=== PATIENT | female | born 1985 | race Caucasian/White ===

== ENCOUNTER → 2024-05-17 13:32 | Outpatient (REF) | payer OTHER, SELFPAY | LOC: PNTC 13:32 | PROVIDERS: ATTENDING PHYSICIAN Obstetrics & Gynecology | DX: Z34.90 Encounter for supervision of normal pregnancy, unspecified, unspecified trimester (principal); Z87.51 Personal history of pre-term labor | CPT/HCPCS: 76805; 76817 ==

== ENCOUNTER → 2024-06-13 13:28 | Outpatient (REF) | payer OTHER, SELFPAY | LOC: PNTC 13:28 | PROVIDERS: ATTENDING PHYSICIAN Obstetrics & Gynecology | DX: Z87.51 Personal history of pre-term labor (principal) | CPT/HCPCS: 76811; 76817 ==

== ENCOUNTER → 2024-07-12 16:46 | Outpatient (REF) | payer OTHER, SELFPAY | LOC: PNTC 16:46 | PROVIDERS: ATTENDING PHYSICIAN Obstetrics & Gynecology | DX: O09.519 Supervision of elderly primigravida, unspecified trimester (principal) | CPT/HCPCS: 76816; 76817 ==

== ENCOUNTER → 2024-07-14 14:17 | Outpatient (REF) | payer OTHER, SELFPAY | LOC: WDC 14:17 | PROVIDERS: ATTENDING PHYSICIAN Obstetrics & Gynecology | DX: N63.10 Unspecified lump in the right breast, unspecified quadrant (principal) | CPT/HCPCS: 76642 ==

== ENCOUNTER → 2024-08-16 15:03 | Outpatient (REF) | payer OTHER, SELFPAY | LOC: PNTC 15:03 | PROVIDERS: ATTENDING PHYSICIAN Obstetrics & Gynecology | DX: O09.529 Supervision of elderly multigravida, unspecified trimester (principal) | CPT/HCPCS: 36415; 76816; 86850; 86900; 86901; 96372; J2790 ==

== ENCOUNTER 2024-09-02 10:20 | Inpatient (IN) | payer OTHER, SELFPAY ==
[2024-09-02 10:27] VITALS: BMI 25.3
[2024-09-02 10:29] VITALS: BP 118/72
[2024-09-02] MEDS: LR 500 IV (10:30)
[2024-09-02] MEDS: LR IV (10:30)
[2024-09-02 11:12] LABS: Urine Albumin Trace (Neg - Trace); Urine Bilirubin Negative (Negative); Urine Character Slightly Cloudy (Clear); Urine Color Yellow; Urine Glucose Negative (Negative); Urine Ketone Negative (Negative); Urine Leukocyte 2+ (Negative); Urine Nitrite Negative (Negative); Urine Occult Blood Negative (Negative); Urine Specific Gravity 1.015 (<1.030); Urine Urobilinogen 2+ (Neg - 1+)
[2024-09-02 11:13] LABS: % Basophils 0.4 % (0-2); % Eosinophils 1.4 % (0-6); % Immature Granulocytes 1.3 % (0-0.5); % Lymphocytes 20.7 % (20.5-51.1); % Monocytes 6.6 % (1.7-9.3); % Neutrophils 69.6 % (42.2-75.2); Absolute Eosinophils 0.1 10^3/uL (0-0.7); Absolute Immature Granulocytes 0.1 10^3/uL (0-0.05); Absolute Lymphocytes 1.9 10^3/uL (1.2-3.4); Absolute Monocytes 0.6 10^3/uL (0.1-0.6); Absolute Neutrophils 6.4 10^3/uL (1.4-6.5); Hematocrit 30.7 % (37.0-47.0); Hemoglobin 10.1 g/dL (12.0-16.0); Mean Corp Hgb Conc. 32.9 g/dL (33.0-37.0); Mean Corpuscular Hgb 25.9 pg (27.0-31.0); Mean Corpuscular Volume 78.7 fL (81.0-99.0); Mean Platelet Volume 9.5 fL (7.4-10.4); Nucleated Red Blood Cells % 0 %; Platelet Count 248 10^3/uL (130-400); Red Cell Dist. Width 13.3 % (11.5-14.5); White Blood Cell Count 9.2 10^3/uL (4.8-10.8)
[2024-09-02 11:25] LABS: Urine Bacteria Moderate (Negative); Urine Red Blood Cell 0-2 /HPF (0-2); Urine Squamous Cell >30 /LPF (Few); Urine White Cell 30-40 /HPF (0-5)
[2024-09-02] MEDS: LR 1000 IV (11:26)
[2024-09-02 11:29] LABS: ALT (SGPT) 14 U/L (0-35); AST (SGOT) 24 U/L (14-36); Albumin 3.6 g/dl (3.5-5.0); Alkaline Phosphatase 107 U/L (38-126); Blood Urea Nitrogen 7 mg/dl (7-17); Calcium 8.9 mg/dl (8.4-10.2); Carbon Dioxide 21 mmol/L (22-30); Chloride 102 mmol/L (98-107); Estimated Creatinine Clearance 110 ml/min; Glucose 86 mg/dl (70-99); Potassium 4.1 mmol/L (3.5-5.1); Sodium 134 mmol/L (135-145); Total Bilirubin 0.6 mg/dl (0.2-1.3); Total Protein 6.4 g/dl (6.3-8.2); Uric Acid 2.5 mg/dl (2.5-6.2); eGFR > 60.00
[2024-09-02 11:34] LABS: Protein/creatinine Ratio 0.2; Urine Protein 13 mg/dl
[2024-09-02] MEDS: TYLENOL 1000 MG PO (11:59)
[2024-09-04 02:05] LABS: Bile Acids (Cholylglycine) 2 umol/L (0-10)
== END 2024-09-02 14:06 | disposition home or self-care (01) | DRG 831 ==
LOC: LDRP 10:20
PROVIDERS: ADMITTING PHYSICIAN Obstetrics & Gynecology; ATTENDING PHYSICIAN Obstetrics & Gynecology; FAMILY PHYSICIAN Family Medicine
DX: O26.643 Intrahepatic cholestasis of pregnancy, third trimester (principal); K83.1 Obstruction of bile duct; Z3A.31 31 weeks gestation of pregnancy; O26.893 Other specified pregnancy related conditions, third trimester; Z67.21 Type B blood, Rh negative
CPT/HCPCS: 80053; 81003; 81015; 82239; 82570; 84156; 84550; 85025; 85027; 86850; 86870; 86900; 86901; G0378

== ENCOUNTER 2024-09-22 22:18 | Observation (INO) | payer OTHER, SELFPAY ==
[2024-09-22 22:42] VITALS: BP 119/72; BMI 26.1
[2024-09-22 23:32] LABS: Hemoglobin 9.6 g/dL (12.0-16.0); Mean Corp Hgb Conc. 33.1 g/dL (33.0-37.0); Mean Corpuscular Hgb 25.1 pg (27.0-31.0); Mean Corpuscular Volume 75.7 fL (81.0-99.0); Mean Platelet Volume 9.5 fL (7.4-10.4); Platelet Count 239 10^3/uL (130-400); Red Blood Cell Count 3.83 10^6/uL (4.20-5.40); Red Cell Dist. Width 14.3 % (11.5-14.5); White Blood Cell Count 9.4 10^3/uL (4.8-10.8)
== END 2024-09-23 01:28 | disposition home or self-care (01) ==
LOC: LDRP 22:18
PROVIDERS: ADMITTING PHYSICIAN Obstetrics & Gynecology
DX: O26.893 Other specified pregnancy related conditions, third trimester (principal); R10.9 Unspecified abdominal pain; Z3A.34 34 weeks gestation of pregnancy; L29.89 Other pruritus; O09.523 Supervision of elderly multigravida, third trimester; R51.9 Headache, unspecified; O22.43 Hemorrhoids in pregnancy, third trimester; R11.0 Nausea; Z88.0 Allergy status to penicillin
CPT/HCPCS: 85027; 86850; 86870; 86900; 86901; G0378

== ENCOUNTER → 2024-09-26 15:47 | Outpatient (REF) | payer OTHER, SELFPAY | LOC: PNTC 15:47 | PROVIDERS: ATTENDING PHYSICIAN Obstetrics & Gynecology | DX: O09.519 Supervision of elderly primigravida, unspecified trimester (principal) | CPT/HCPCS: 76816 ==

== ENCOUNTER 2024-10-11 01:35 | Inpatient (IN) | payer OTHER, SELFPAY ==
[2024-10-11 01:44] VITALS: BP 123/79; BMI 26.5
[2024-10-11 04:54] LABS: % Basophils 0.3 % (0-2); % Eosinophils 2.5 % (0-6); % Immature Granulocytes 0.6 % (0-0.5); % Lymphocytes 13.4 % (20.5-51.1); % Monocytes 8.9 % (1.7-9.3); % Neutrophils 74.3 % (42.2-75.2); Absolute Eosinophils 0.3 10^3/uL (0-0.7); Absolute Immature Granulocytes 0.1 10^3/uL (0-0.05); Absolute Lymphocytes 1.5 10^3/uL (1.2-3.4); Absolute Neutrophils 8.1 10^3/uL (1.4-6.5); Hematocrit 28.5 % (37.0-47.0); Mean Corp Hgb Conc. 31.6 g/dL (33.0-37.0); Mean Corpuscular Hgb 23.4 pg (27.0-31.0); Mean Corpuscular Volume 74.2 fL (81.0-99.0); Mean Platelet Volume 9.6 fL (7.4-10.4); Nucleated Red Blood Cells % 0 %; Platelet Count 225 10^3/uL (130-400); Red Blood Cell Count 3.84 10^6/uL (4.20-5.40); Red Cell Dist. Width 15.6 % (11.5-14.5); White Blood Cell Count 10.9 10^3/uL (4.8-10.8)
[2024-10-11] MEDS: CLEOCIN 50 IV (05:18)
[2024-10-11] MEDS: BICITRA 30 ML PO (05:18)
[2024-10-11] MEDS: TYLENOL 1000 MG PO (05:18)
[2024-10-11] MEDS: GENTAMICIN 58.75 MG IV (05:38)
[2024-10-11] MEDS: PRENATAL PLUS 1 TABLET PO (09:37)
[2024-10-11] MEDS: TORADOL 15 MG IV ×3 (09:38→20:55)
[2024-10-11] MEDS: PITOCIN 30 UNITS/NSS 500 ML IV (10:59)
[2024-10-12] MEDS: TORADOL 15 MG IV (03:19)
[2024-10-12] MEDS: MYLICON 80 MG PO ×2 (03:25→09:45)
[2024-10-12 07:10] LABS: Hematocrit 21.5 % (37.0-47.0); Mean Corp Hgb Conc. 32.6 g/dL (33.0-37.0); Mean Corpuscular Hgb 24.5 pg (27.0-31.0); Mean Corpuscular Volume 75.2 fL (81.0-99.0); Mean Platelet Volume 9.6 fL (7.4-10.4); Platelet Count 204 10^3/uL (130-400); Red Blood Cell Count 2.86 10^6/uL (4.20-5.40); Red Cell Dist. Width 15.7 % (11.5-14.5); White Blood Cell Count 15.2 10^3/uL (4.8-10.8)
[2024-10-12] MEDS: SENOKOT-S 1 TABLET PO (08:00)
[2024-10-12] MEDS: PRENATAL PLUS 1 TABLET PO (08:00)
[2024-10-12] MEDS: MOTRIN 600 MG PO ×2 (09:45→17:52)
[2024-10-12] MEDS: RHOGAM 300 MCG IM (11:33)
[2024-10-12] MEDS: FEOSOL 325 MG PO (11:33)
--- NOTE | 2024-10-12 13:08 | W.PN.ANS.POP ---
Anesthesia Post Operative
- Anesthesia Post Op Note
Vital Signs Stable-See Nursing Note: Yes
Airway Patent: Yes
Adequate Pain Control: Yes
Change in Mental Status: No
Current Postoperative Nausea & Vomiting: No
Anesthesia Complications: No
General Anesthetic Recall: No
Unplanned Admission: No
Post Op Hydration Adequate: Yes
[2024-10-12] MEDS: TYLENOL 650 MG PO (17:52)
[2024-10-13] MEDS: MOTRIN 600 MG PO ×3 (00:38→12:32)
[2024-10-13] MEDS: TYLENOL 650 MG PO ×3 (00:38→12:32)
[2024-10-13] MEDS: MYLICON 80 MG PO (01:10)
[2024-10-13] MEDS: FEOSOL 325 MG PO (08:04)
[2024-10-13] MEDS: PRENATAL PLUS 1 TABLET PO (08:04)
[2024-10-13] MEDS: SENOKOT-S 1 TABLET PO (08:08)
[2024-10-13] MEDS: ADACEL 0.5 ML IM (09:59)
[2024-10-14 15:43] LABS: Syphilis/T. pallidum Ab Reflex Negative (Negative)
== END 2024-10-13 14:16 | disposition home or self-care (01) | DRG 785 ==
LOC: LDRP 01:35
PROVIDERS: Obstetrics & Gynecology; ADMITTING PHYSICIAN Obstetrics & Gynecology
PROC: 10D00Z1 Extraction of Products of Conception, Low, Open Approach (ICD-10-PCS; 2024-10-11)
PROC: 0UT70ZZ Resection of Bilateral Fallopian Tubes, Open Approach (ICD-10-PCS; 2024-10-11)
PROC: 3E0334Z Introduction of Serum, Toxoid and Vaccine into Peripheral Vein, Percutaneous Approach (ICD-10-PCS; 2024-10-12)
DX: O32.1XX0 Maternal care for breech presentation, not applicable or unspecified (principal); Z3A.36 36 weeks gestation of pregnancy; Z37.0 Single live birth; O26.893 Other specified pregnancy related conditions, third trimester; Z67.21 Type B blood, Rh negative; Z30.2 Encounter for sterilization; O69.81X0 Labor and delivery complicated by cord around neck, without compression, not applicable or unspecified
CPT/HCPCS: 88302; 58605; 85025; 85027; 85461; 86780; 86850; 86870; 86900; 86901; 90715; J2790

== ENCOUNTER 2024-11-16 10:03 | Emergency (ER) | payer OTHER, SELFPAY ==
[2024-11-16 10:09] VITALS: BP 118/84
[2024-11-16] MEDS: TORADOL 15 MG IV (11:19)
[2024-11-16] MEDS: ZOFRAN 4 MG IV (11:19)
[2024-11-16 11:41] LABS: % Basophils 0.4 % (0-2); % Eosinophils 0.6 % (0-6); % Immature Granulocytes 0.4 % (0-0.5); % Lymphocytes 10.6 % (20.5-51.1); % Monocytes 3.3 % (1.7-9.3); % Neutrophils 84.7 % (42.2-75.2); Absolute Basophils 0.1 10^3/uL (0-0.2); Absolute Eosinophils 0.1 10^3/uL (0-0.7); Absolute Lymphocytes 1.2 10^3/uL (1.2-3.4); Absolute Monocytes 0.4 10^3/uL (0.1-0.6); Absolute Neutrophils 9.5 10^3/uL (1.4-6.5); Hematocrit 39.5 % (37.0-47.0); Hemoglobin 12.2 g/dL (12.0-16.0); Mean Corp Hgb Conc. 30.9 g/dL (33.0-37.0); Mean Corpuscular Volume 77.6 fL (81.0-99.0); Mean Platelet Volume 9.8 fL (7.4-10.4); Nucleated Red Blood Cells % 0 %; Platelet Count 247 10^3/uL (130-400); Red Blood Cell Count 5.09 10^6/uL (4.20-5.40); Red Cell Dist. Width 19.2 % (11.5-14.5); White Blood Cell Count 11.2 10^3/uL (4.8-10.8)
[2024-11-16 11:55] LABS: ALT (SGPT) 34 U/L (0-35); AST (SGOT) 39 U/L (14-36); Albumin 4.7 g/dl (3.5-5.0); Alkaline Phosphatase 92 U/L (38-126); Blood Urea Nitrogen 9 mg/dl (7-17); Calcium 9.5 mg/dl (8.4-10.2); Carbon Dioxide 28 mmol/L (22-30); Chloride 99 mmol/L (98-107); Glucose 103 mg/dl (70-99); Sodium 136 mmol/L (135-145); Total Bilirubin 0.7 mg/dl (0.2-1.3); Total Protein 7.7 g/dl (6.3-8.2); eGFR > 60.00
[2024-11-16 12:11] LABS: Beta HCG Quantitative < 2.39 mIU/ml
--- NOTE | 2024-11-16 12:27 | ED.GENMED ---
History of Present Illness
General
Chief Complaint: Gynecological Problem
Time Seen by Provider: 11/16/24 10:57
History of Present Illness
History of Present Illness:
39-year-old female presents to the emergency department for evaluation of left lower abdominal/pelvic pain developing over the past 24 to 48 hours. She is approximately 5 weeks status post . She denies any vaginal bleeding or discharge at
this point. Pain is increased this morning and she is very uncomfortable, she was able to contact her [employer] who was going to schedule appointment later this afternoon but the patient felt her pain was too great to wait this long. Denies any
fevers, nausea vomiting or diarrhea. No lower urinary tract voiding symptoms.
Review of Systems
Review of Systems
Allergies reviewed?: Yes
All Other Systems: ROS reviewed and negative except as documented in HPI and ROS
Phy Exam
Physical Exam
Physical Exam:
GEN: Well appearing, NAD, WDWN
HEENT: Oral mucosa moist, no scleral icterus
Cardiac: Regular rate
Lung: No respiratory distress, no tachypnea
Abdomen: Soft, minimal left lower quadrant tenderness, no rigidity. Palpable superficial nodular lesion superior lateral to the right side of the scar, mildly tender to palpation, suspect lipoma, less likely adenopathy
MSK: No gross deformity or injuries
Skin: Good color, no pallor or jaundice, no rashes
Neuro: AO x3, moves all extremities freely
Psych: Calm, cooperative
Course
Orders/Labs/Results
Orders:
Orders
11/16/24 11:10
Ketorolac [Toradol] 15 mg IV NOW STA
Ondansetron Injectable [Zofran] 4 mg IV NOW STA
US Pelvis W Transvag Combined Urgent
Comment:
Reason For Exam: L pelvic pain, 5wk s/p
11/16/24 11:18
Complete Blood Count/With Diff Urgent
Comprehensive Metabolic Panel Urgent
HCG, Beta Quantitative [Beta HCG Quantitative] Urgent
Is this a screen?: No
11/16/24 14:06
Urinalysis Reflex To Culture Urgent
Date Specimen was Collected: 11/16/24
Time Specimen was Collected: 13:51
Urine Microscopic Reflex Cult Urgent
Urine Culture Urgent
EYAL Source: U
Specimen Description:
Date Specimen was Collected: 11/16/24
Time Specimen was Collected: 13:51
Abnormal Lab Results
11/16/24 11/16/24
11:18 14:06
WBC 11.2 H 10^3/uL
(4.8-10.8)
MCV 77.6 L fL
(81.0-99.0)
MCH 24.0 L pg
(27.0-31.0)
MCHC 30.9 L g/dL
(33.0-37.0)
RDW 19.2 H %
(11.5-14.5)
Absolute Neuts (auto) 9.5 H 10^3/uL
(1.4-6.5)
Neutrophils % 84.7 H %
(42.2-75.2)
Lymphocytes % 10.6 L %
(20.5-51.1)
Creatinine 0.5 L mg/dL
(0.6-1.0)
Glucose 103 H mg/dl
(70-99)
AST 39 H U/L
(14-36)
Ur Occult Blood Reflex 2+ A
(Negative)
Urine Nitrite (Reflex) Positive A
(Negative)
Leukocyte Esterase Rfl 2+ A
(Negative)
Urine WBC (Reflex) 11-15 A /HPF
(0-5)
Urine Bacteria (Reflex) Moderate A
(Negative)
11/16/24 11:18
11/16/24 11:18
Vital Signs
Initial and Last Documented VS:
Initial Vital Signs
Temp Pulse Resp BP Pulse Ox
98.0 F 83 18 118/84 96
11/16/24 10:09 11/16/24 10:09 11/16/24 10:09 11/16/24 10:09 11/16/24 10:09
Last Documented Vital Signs
Temp Pulse Resp BP Pulse Ox
98.6 F 76 18 133/72 100
11/16/24 14:20 11/16/24 14:20 11/16/24 14:20 11/16/24 14:20 11/16/24 14:20
MDM/Problems Addressed
MDM/Problems Addressed:
Ultrasound with questionable signs of endometritis versus retained products, given that she has no vaginal bleeding and negative hCG it is highly unlikely that this represents retained products. She was seen in consultation by LINE DRIVER who agrees there
is no consideration at this time for endometritis. Although she has no lower urinary tract voiding symptoms we will treat for UTI given the pyuria noted. She is otherwise clinically stable for outpatient follow-up.
*Critical Care Note
Total Time (30-74mins, 75-104mins- exclusive of procedures): Not Applicable
ED Attending Note
-
Portions of this chart may have been created with voice recognition software.� Occasional wrong word or��sound alike� substitutions may have occurred due to the inherent limitations of voice recognition software.
Discharge Plan
Departure
Patient Disposition: Home (Routine Discharge)
Date of Disposition: 11/16/24
Time of Disposition: 15:54
Patient with high blood pressure during this ER visit?: No
Discharge Problem:
Acute cystitis
Instructions: Urinary tract infection - Discharge instructions
Prescriptions:
New
cephalexin 500 mg capsule
500 mg PO Q8H 7 Days Qty: 21 0RF
No Action
prenat.vits,maria g,gyd-[id number] Tablet
1 tab PO DAILY
ferrous sulfate [FeroSul] 325 mg (65 mg iron) Tablet
325 mg PO DAILY Qty: 30 0RF
ibuprofen 600 mg Tablet
600 mg PO Q6HPRN PRN (Reason: cramps) Qty: 60 0RF
acetaminophen 325 mg Tablet
650 mg PO Q4HPRN PRN (Reason: mild pain) Qty: 0 0RF
sennosides-docusate sodium 8.6-50 mg Tablet
1 tab PO DAILYPRN PRN (Reason: constipation) Qty: 0 0RF
simethicone 80 mg Tablet,Chewable
80 mg PO TIDPRN PRN (Reason: flatulence) Qty: 0 0RF
Referrals:
UNKNOWN - PT DOES,NOT KNOW [Family Provider] -
Interventions
Interventions:
*Risk Screen - Suicide Last Done: 11/16/24 10:09
*General Assessment Last Done: 11/16/24 10:09
*Neglect/Abuse Screening Last Done: 11/16/24 10:09
*ED COVID-19 Vaccine History Last Done: 11/16/24 11:05
*Nursing Disposition Last Done: 11/16/24 16:08
ED-Female Genitourinary Assessment Last Done: 11/16/24 11:05
Discharge Date and Time
Discharge Date/Time: 11/16/24 16:09
Print Language: SINHALA
[2024-11-16 14:20] VITALS: BP 133/72
[2024-11-16 14:30] LABS: Urine Albumin Negative (Neg - Trace); Urine Bilirubin Negative (Negative); Urine Character Clear (Clear); Urine Color Yellow; Urine Glucose Negative (Negative); Urine Ketone Negative (Negative); Urine Leukocyte 2+ (Negative); Urine Nitrite Positive (Negative); Urine Occult Blood 2+ (Negative); Urine Specific Gravity 1.005 (<1.030); Urine Urobilinogen Negative (Neg - 1+)
[2024-11-16 14:48] LABS: Urine Bacteria Moderate (Negative); Urine Red Blood Cell None Seen /HPF (0-2)
== END 2024-11-16 16:09 | disposition home or self-care (01) ==
LOC: EMR 10:03
PROVIDERS: Physician Assistant; EMERGENCY PHYSICIAN Emergency Medicine; OTHER PHYSICIAN Obstetrics & Gynecology
DX: N30.00 Acute cystitis without hematuria (principal)
CPT/HCPCS: 99284; 96374; 96375; 76830; 76856; 80053; 81003; 81015; 84702; 85025; 87077; 87086; 87186